=== PATIENT | female | born 2000 | race African-American/Black ===

== ENCOUNTER 2019-05-02 11:03 | Emergency (ER) | payer BC ==
[~2019-05-02] VITALS: Ht 157.5 cm; Wt 49.9 kg
[2019-05-02 11:04] VITALS: BP 109/65
[2019-05-02] MEDS ORDERED: MOBIC15 MG PO (12:27)
== END 2019-05-02 12:56 | disposition home or self-care (01) ==
LOC: ER 11:03
DX: M75.101 Unspecified rotator cuff tear or rupture of right shoulder, not specified as traumatic (principal)

== ENCOUNTER 2020-07-13 14:15 | Emergency (ER) | payer BC ==
[~2020-07-13] VITALS: Ht 160 cm; Wt 48.1 kg
[~2020-07-13 14:15] MED LIST: MOBIC15 MG PO
[2020-07-13] MEDS ORDERED: KURVELO PO (14:53)
[2020-07-13] MEDS ORDERED: NAPROXEN375 MG PO (15:28)
[2020-07-13] MEDS ORDERED: TRAMADOL 50 MG50 MG PO (15:28)
[2020-07-13 15:40] VITALS: BP 110/70
== END 2020-07-13 15:40 | disposition home or self-care (01) ==
LOC: ER 14:15
DX: S46.021A Laceration of muscle(s) and tendon(s) of the rotator cuff of right shoulder, initial encounter (principal); Z79.899 Other long term (current) drug therapy; X50.0XXA Overexertion from strenuous movement or load, initial encounter; Y93.89 Activity, other specified; Y92.69 Other specified industrial and construction area as the place of occurrence of the external cause; Y99.0 Civilian activity done for income or pay